=== PATIENT | male | born 1960 | race Caucasian/White ===

== ENCOUNTER 2024-01-08 10:35 | Emergency (ER) | payer OTHER ==
[~2024-01-08] VITALS: Ht 182.9 cm; Wt 104.3 kg
[2024-01-08 10:46] VITALS: BP 102/63; TEMP 98.3; O2SAT 96
[2024-01-08] MEDS ORDERED: TETRAcaine 5 ML BOTTLE ONE (10:47)
[2024-01-08] MEDS ORDERED: FLUORESCEIN SODIUM OPHTH 1 EA STRIP ONE (10:47)
[2024-01-08] MEDS ORDERED: GENT5DRO23 LEFTEYE (10:54)
== END 2024-01-08 11:12 | disposition home or self-care (01) ==
LOC: ER 10:40
DX: H10.9 Unspecified conjunctivitis (principal); H57.12 Ocular pain, left eye; F32.A Depression, unspecified; Z86.74 Personal history of sudden cardiac arrest; Z95.5 Presence of coronary angioplasty implant and graft